=== PATIENT | female | born 1955 | race Caucasian/White ===

== ENCOUNTER → 2018-02-26 09:47 | Outpatient (CLI) | payer BC, SELFPAY ==
--- NOTE | 2018-02-26 09:52 | MM_ITS ---
MM Dig screening mamm BI w/CAD CAD Screening ORDERING PHYSICIAN : Cain Lucero MD PATIENT AGE: 62 years GENDER: Femal INDICATION: 62-year-old female. No hormones. No new complaints. Family history. Mother with breast cancer age 45. Pre-Menopausal TECHNIQUE: Standard CC and MLO images were obtained. R2 CAD reviewed. COMPARISON: Previous mammograms: April 2013 and February 2016 and January 2011 FINDINGS: Moderately dense breast with with minimal asymmetry but no significant new findings. No dominant mass nor suspicious calcifications. RIGHT BREAST:There are a few small punctate calcifications at the central breast. These are slightly more evident apparent than on 2016.. Perhaps very very slight more numerous the punctate character favor more likely benign, however would suggest magnification spot view this area Labeled A at patient's convenience to better characterize and establish baseline for this small area of calcification. A very Reasonable alternative would be 6 month follow-up if preferred by patient . LEFT BREAST:No new areas of concern the left. Follow-up left mammogram in one year =======IMPRESSION: ======== Right breast. Small loose grouping of small punctate calcifications central right breast. Most likely benign but recommend magnification to better characterize is a become more evident. These will be useful to further characterize and to enter establish a baseline reference Left breast Stable with no new areas of concern. One year follow-up left adequate BI-RADS Category: 0 Need Additional Imaging Evaluaiton. RECOMMENDED FOLLOW-UP: IMM - IMMEDIATE FOLLOW-UP RECOMMENDED Magnification views of the developing tiny likely benign calculations right breast (A letter has been sent to the patient regarding results of the study.) .
== END ==
PROVIDERS: Family Provider Family Medicine; PCP Family Medicine; Visit Provider Family Medicine
DX: Z12.31 Encounter for screening mammogram for malignant neoplasm of breast (principal)
CPT/HCPCS: 77067

== ENCOUNTER → 2018-03-19 12:39 | Outpatient (CLI) | payer BC, SELFPAY ==
--- NOTE | 2018-03-19 12:42 | MM_ITS ---
MM Dig mamm DX unilat RT CAD COMPARISON: 02/26/2018, 02/26/2016, 04/19/2013 INDICATION: Follow-up abnormal mammogram/calcifications ORDERING PHYSICIAN: Cain Lucero MD PATIENT AGE: 62 years TECHNIQUE: Spot mag views of the right breast FINDINGS: There is a small cluster of 4 well circumscribed punctate calcifications in the central aspect of the right breast in the retroareolar region. These are probably benign. They've slightly increased in number since 02/26/2016 therefore, recommend 6 month follow-up IMPRESSION: Probably benign calcifications right retroareolar region BI-RADS Category: 3 Benign Finding Short Term Follow-up RECOMMENDED FOLLOW-UP: 6M - 6 MONTH FOLLOW-UP (A letter has been sent to the patient regarding results of the study.)
== END ==
PROVIDERS: Family Provider Family Medicine; PCP Family Medicine; Visit Provider Family Medicine
DX: R92.8 Other abnormal and inconclusive findings on diagnostic imaging of breast (principal)
CPT/HCPCS: 77065

== ENCOUNTER → 2018-09-23 12:43 | Outpatient (CLI) | payer BC, SELFPAY ==
--- NOTE | 2018-09-23 12:48 | MM_ITS ---
MM Dig mamm DX unilat RT CAD INDICATION: Follow-up abnormal mammogram, calcifications ORDERING PHYSICIAN: Cain Lucero MD PATIENT AGE: 62 years COMPARISON: 03/19/2018 TECHNIQUE: Standard images performed along with spot compression mag views FINDINGS: A cluster of 4 calcifications once again noted in the central aspect of the right breast in the retroareolar region which is not significantly changed and maintains a benign appearance. No new abnormalities apparent. IMPRESSION: Benign-appearing calcifications unchanged right retroareolar region. Recommend continued 6 month follow-up to confirm one-year stability. Screening exam on the left suggested at that time as well BI-RADS Category: 3 Probably Benign Finding Short Term Follow-up RECOMMENDED FOLLOW-UP: 6M - 6 MONTH FOLLOW-UP (A letter has been sent to the patient regarding results of the study.)
== END ==
PROVIDERS: PCP Family Medicine; Visit Provider Family Medicine
DX: R92.8 Other abnormal and inconclusive findings on diagnostic imaging of breast (principal)
CPT/HCPCS: 77065

== ENCOUNTER → 2019-03-24 12:44 | Outpatient (CLI) | payer MEDICARE, SELFPAY ==
--- NOTE | 2019-03-24 12:49 | MM_ITS ---
MM Dig mamm BI DX w/CAD INDICATION: Follow-up abnormal mammogram/calcifications ORDERING PHYSICIAN: Cain Lucero MD PATIENT AGE: 63 years COMPARISON: 02/26/2018, 03/19/2018, 02/26/2016 09/23/2018 TECHNIQUE: Standard images performed along with spot compression mag views FINDINGS: There is average fibroglandular tissue. A cluster of benign-appearing calcifications once again noted in the central aspect of the right breast these do not appear significantly changed. No malignant appearing mass. The left breast has an unremarkable appearance. IMPRESSION: Benign findings, no change with no evidence of malignancy. Stable cluster of calcifications in the subareolar region on the right BI-RADS Category: 2 Benign Finding(s) RECOMMENDED FOLLOW-UP: 1YR - 1 YEAR FOLLOW-UP (A letter has been sent to the patient regarding results of the study.)
== END ==
PROVIDERS: PCP Family Medicine; Visit Provider Family Medicine
DX: R92.8 Other abnormal and inconclusive findings on diagnostic imaging of breast (principal)
CPT/HCPCS: 77066

== ENCOUNTER → 2020-04-12 08:42 | Outpatient (CLI) | payer MEDICARE, SELFPAY ==
--- NOTE | 2020-04-12 08:47 | MM_ITS ---
PROCEDURE: MM DIG SCREENING MAMM BI W/CAD Digital Breast Tomosynthesis Included CLINICAL INDICATION: SCREENING There is a history of breast cancer patient's mother diagnosed after menopause. COMPARISON: DXRT MM Dig mamm DX unilat RT CAD from 03/19/2018 DXRT MM Dig mamm DX unilat RT CAD from 09/23/2018 DIG MAMM-DX KA[facility] from 03/24/2019 TECHNIQUE: Standard CC and MLO images and 3D Tomosynthesis was obtained. R2 CAD reviewed. FINDINGS: Moderate scattered fibroglandular densities are seen in the central portions of both breasts. The findings of bilateral and symmetrical. There is no suspicious lesion in either breast and no suspicious microcalcifications. There are small nodes in both axilla. IMPRESSION: Fibrofatty parenchyma with no suspicious lesions seen BI-RAD Category: 1 Negative FOLLOW-UP: 1YR 1 Year Follow-up (A letter has been sent to the patient regarding results of the study.) Dictated by: Dr. Tejinder Treadwell MD 04/13/2020 15:[address] Tejinder Treadwell MD in [place] 04/13/2020 15:07
== END ==
PROVIDERS: PCP Family Medicine; Visit Provider Nurse Practitioner
DX: Z12.31 Encounter for screening mammogram for malignant neoplasm of breast (principal)
CPT/HCPCS: 77063; 77067

== ENCOUNTER → 2021-05-03 10:11 | Outpatient (CLI) | payer MEDICARE, SELFPAY ==
--- NOTE | 2021-05-03 10:15 | MM_ITS ---
PROCEDURE: MM DIG SCREENING MAMM BI W/CAD Digital Breast Tomosynthesis Included CLINICAL INDICATION: SCREENING COMPARISON: MG DMSB DIG MAMM-SCREEN [facility] from 02/26/2016 MG SCBI MM Dig screening mamm BI w/CAD from 02/26/2018 MG DXRT MM Dig mamm DX unilat RT CAD from 03/19/2018 MG DXRT MM Dig mamm DX unilat RT CAD from 09/23/2018 MG DIG MAMM-DX [facility] from 03/24/2019 MG MM DIG SCREENING MAMM BI W/CAD from 04/12/2020 TECHNIQUE: Standard CC and MLO images and 3D Tomosynthesis was obtained. R2 CAD reviewed. FINDINGS: There are scattered fibroglandular elements which may obscure a lesion on mammography. Current mammograms show a small focal asymmetry in the upper slightly lateral aspect of right breast, for which right breast digital diagnostic mammograms and right breast ultrasound are recommended. No other dominant mass. No suspicious type microcalcifications or indirect evidence of malignancy. IMPRESSION: Current mammograms show a small focal asymmetry in the upper slightly outer right breast for which right breast digital diagnostic mammograms and right breast ultrasound are recommended. BI-RAD Category: 0 Need Additional Imaging Evaluation FOLLOW-UP: IMM Immediate Follow-up Recommended (A letter has been sent to the patient regarding results of the study.) Dictated by: Noah Carbajal MD 05/03/2021 17:42 Noah Carbajal MD in [place] 05/03/2021 17:42
== END ==
PROVIDERS: PCP Family Medicine; Visit Provider Nurse Practitioner
DX: Z12.31 Encounter for screening mammogram for malignant neoplasm of breast (principal)
CPT/HCPCS: 77063; 77067

== ENCOUNTER → 2021-05-15 14:29 | Outpatient (CLI) | payer MEDICARE, SELFPAY ==
--- NOTE | 2021-05-15 14:33 | US_ITS ---
PROCEDURE: MM DIG MAMM DX UNILAT RT CAD Digital Breast Tomosynthesis Included RIGHT BREAST ULTRASOUND COMPLETE WITH AXILLA CLINICAL INDICATION: ABN MAMM COMPARISON: MG DIG MAMM-DX [facility] from 03/24/2019 MG MM DIG SCREENING MAMM BI W/CAD from 04/12/2020 MG MM DIG SCREENING MAMM BI W/CAD from 05/03/2021 US US BREAST RT COMPLETE from 05/15/2021 TECHNIQUE: Problem solving views performed along with right breast ultrasound FINDINGS: The area of interest on the MLO view does appear to compress out as fibroglandular tissue. On the CC view there is a 4 mm nodular opacity in the central aspect of the right breast. The anterior margins are obscured. The posterior margins are well-circumscribed. There is average fibroglandular tissue. Ultrasound the right breast shows a 4 mm hypoechoic oval area at the 11 o'clock region which is nonspecific and could be due to small complicated cyst. This could correspond to the mammographic abnormality. No other abnormalities apparent. IMPRESSION: Probably benign findings. Recommend six-month mammographic and sonographic follow-up. BI-RAD Category: 3 Probably Benign Finding Short Term Follow-Up FOLLOW-UP: 6M 6 Month Follow-up (A letter has been sent to the patient regarding results of the study.) Dictated by: Curtis Yanes MD 05/22/2021 17:49 Curtis Yanes MD in [place] 05/22/2021 17:49
== END ==
PROVIDERS: PCP Family Medicine; Visit Provider Nurse Practitioner
DX: R92.8 Other abnormal and inconclusive findings on diagnostic imaging of breast (principal)
CPT/HCPCS: 76641; 77061; 77065; G0279

== ENCOUNTER → 2021-11-19 13:21 | Outpatient (CLI) | payer MEDICARE, SELFPAY ==
--- NOTE | 2021-11-19 13:23 | MM_ITS ---
PROCEDURE INFORMATION: Exam: US Right Breast, Complete MG Right Diagnostic Breast Tomosynthesis Exam date and time: 11/19/2021 1:23 PM Age: 65 years old Clinical indication: Short-term radiographic follow-up for a probably benign right breast mass TECHNIQUE: Imaging protocol: Complete ultrasound of all four quadrants of the Right breast and the retroareolar regions, including ultrasound of the axilla when performed. Right Diagnostic tomosynthesis and 2D mammography including computer-aided detection (CAD) when performed. Unilateral or bilateral exam. COMPARISON: 1. MG MM DIG MAMM DX UNILAT RT CAD 05/15/2021 2:40 PM 2. MG MM DIG SCREENING MAMM BI W/CAD 05/03/2021 10:32 AM FINDINGS: MAMMOGRAPHY: The breast tissue is composed of scattered areas of fibroglandular density. There is no stellate mass, architectural distortion or suspicious microcalcifications to suggest malignancy. Additional spot compression views of the right central to upper breast demonstrate normal overlapping fibroglandular structures. No skin thickening or axillary adenopathy. ULTRASOUND: Sonographic images of the right breast including the retroareolar region, all 4 quadrants and the axilla do not demonstrate any solid or cystic masses. Cursors were placed over normal fibroglandular structures in the right 11 o'clock axis. Previously noted probable cyst in the right 11 o'clock periareolar region is no longer identified. No architectural distortion or acoustical shadowing. No skin thickening or axillary adenopathy. IMPRESSION: No mammographic or sonographic evidence of malignancy. Annual bilateral mammographic screening is recommended in April 2022 unless otherwise clinically indicated. ASSESSMENT: BI-RADS Category 2: Benign
== END ==
PROVIDERS: PCP Family Medicine; Visit Provider Nurse Practitioner
DX: R92.8 Other abnormal and inconclusive findings on diagnostic imaging of breast (principal)
CPT/HCPCS: 76641; 77061; 77065; G0279

== ENCOUNTER → 2022-05-21 08:22 | Outpatient (CLI) | payer MEDICARE, SELFPAY ==
--- NOTE | 2022-05-21 08:36 | XR_ITS ---
FINAL REPORT TECHNIQUE: Bone densitometry calculations of the lumbar spine and left hip were obtained. CLINICAL HISTORY: post menopausal FINDINGS: Using L1-4, the bone mineral density of the spine is 1.078 g/cm2, corresponding to T-score of 0.3. Using the right hip, the bone mineral density of the femoral neck is 0.770 g/cm2, corresponding to a T-score of -0.7. Using the left hip, the bone mineral density of the femoral neck is 0.873 g/cm2, corresponding to a T-score of -0.6. NOTE: T-score: Standard deviation compared with peak bone mass of young adult mean. *Following the recommendations of the International Society of Bone densitometry, classification of hip BMD is based on the lower of two T-scores; total hip or femoral neck. FRAX data was not reported because all scores are above-1.0. IMPRESSION: Normal bone mineral density of the lumbar spine and hip. Reviewed, Interpreted and Dictated by Rico Jovel III, MD Transcribed by Marika Hayes Authenticated and [facility]
--- NOTE | 2022-05-21 08:36 | MM_ITS ---
PROCEDURE INFORMATION: Exam: MG Bilateral Screening 3D Mammography Exam date and time: 05/21/2022 8:48 AM Age: 66 years old Clinical indication: Screening mammogram. TECHNIQUE: Imaging protocol: Bilateral Screening tomosynthesis and 2D mammography including computer-aided detection (CAD) when performed. COMPARISON: 1. MG MM DIG MAMM DX UNILAT RT CAD 11/19/2021 1:22 PM 2. MG MM DIG MAMM DX UNILAT RT CAD 05/15/2021 2:40 PM 3. MG MM DIG SCREENING MAMM BI W/CAD 05/03/2021 10:32 AM 4. MG MM DIG SCREENING MAMM BI W/CAD 04/12/2020 8:58 AM FINDINGS: MAMMOGRAPHY: Breast composition: There are scattered areas of fibroglandular density. Mass: None. Architectural distortion: No new or suspicious architectural distortion. Calcifications: No new or suspicious calcifications are present Asymmetric density: No new or suspicious asymmetric density is present Skin thickening: None. Axillary adenopathy: None. IMPRESSION: No mammographic evidence of malignancy. Recommend annual screening mammography unless otherwise clinically indicated. ASSESSMENT: BI-RADS category 1: Negative
== END ==
PROVIDERS: PCP Family Medicine; Visit Provider Nurse Practitioner
DX: Z12.31 Encounter for screening mammogram for malignant neoplasm of breast (principal); Z78.0 Asymptomatic menopausal state
CPT/HCPCS: 77063; 77067; 77080

== ENCOUNTER → 2022-12-05 12:17 | Outpatient (CLI) | payer MEDICARE, SELFPAY ==
[2022-12-05 18:42] LABS: Basophils % 0.9 % (0.1-2.0); Eosinophils # 0.1 K/mm3 (0.0-0.4); Eosinophils % 2.8 % (0.1-12.0); Hematocrit 39.2 % (37.0-47.0); Hemoglobin 13.2 g/dL (12.2-16.2); Lymphocytes # 1.2 K/mm3 (0.7-4.5); Lymphocytes % 28.8 % (10-50); Mean Corpuscular HGB Conc 33.6 g/dL (31.8-35.4); Mean Corpuscular Hemoglobin 29.6 pg (27.0-31.2); Mean Corpuscular Volume 88.1 fl (81-99); Mean Platelet Volume 9.1 fl (7.4-10.4); Monocytes # 0.3 K/mm3 (0.1-1.0); Monocytes % 6.6 % (1.7-9.3); Neutrophils # 2.5 K/mm3 (1.8-7.8); Neutrophils % 60.9 % (37.0-80.0); Platelet Count 278 K/mm3 (142-424); Red Blood Count 4.45 M/mm3 (4.20-5.40); Red Cell Distribution Width 13.7 % (11.5-17.5)
[2022-12-05 18:51] LABS: Alanine Aminotransferase 22 U/L (12-78); Albumin Level 4.4 g/dl (3.5-5.0); Albumin/Globulin Ratio 1.7 (1.1-1.8); Alkaline Phosphatase 74 U/L (38-126); Anion Gap 8.8 mEq/L (5-15); Aspartate Amino Transferase 27 U/L (14-36); Bilirubin,Total 0.9 mg/dl (0.2-1.3); Blood Urea Nitrogen 18 mg/dl (7-17); Calcium 8.8 mg/dl (8.4-10.2); Carbon Dioxide 29 mmol/L (22.0-30.0); Chloride 105 mmol/L (98-107); Chol/HDL Ratio 4.1 (1-3.5); Cholesterol 199 mg/dl (140-200); Estimated Glomerular Filt Rate 83 ml/min (>60); GFR (African American) 101 ML/MIN (>60); Globulin 2.6 g/dL (1.3-3.2); Glucose 96 mg/dl (74-100); HDL Cholesterol 49 mg/dl (40-60); Potassium 3.8 mmoL/L (3.5-5.1); Sodium 139 mmol/L (136-145); Triglycerides 146 mg/dl (30-150); VLDL Cholesterol 29 mg/dL (0-40)
[2022-12-05 18:54] LABS: Microalbumin/Creatinine Ratio 17.1
[2022-12-05 18:55] LABS: Creatinine,Urine Random 57 mg/dL (Not Estab.)
[2022-12-05 19:01] LABS: Direct LDL Cholesterol 121.34 mg/dL (100-129)
[2022-12-05 19:20] LABS: Thyroid Stimulating Hormone 1.17 uIU/mL (0.465-4.68)
[2022-12-05 20:49] LABS: 25-OH Vitamin D, Total 55.8 ng/mL (30-100)
== END ==
PROVIDERS: PCP Nurse Practitioner; Visit Provider Nurse Practitioner
DX: E03.9 Hypothyroidism, unspecified (principal); E53.8 Deficiency of other specified B group vitamins; E78.5 Hyperlipidemia, unspecified; I10 Essential (primary) hypertension; J30.9 Allergic rhinitis, unspecified; E55.9 Vitamin D deficiency, unspecified
CPT/HCPCS: 80053; 80061; 82043; 82306; 82570; 84439; 84443; 85025

== ENCOUNTER → 2023-05-15 09:23 | Outpatient (CLI) | payer MEDICARE, SELFPAY ==
[2023-05-15 18:49] LABS: Alanine Aminotransferase 21 U/L (12-78); Albumin Level 4.6 g/dl (3.5-5.0); Albumin/Globulin Ratio 1.8 (1.1-1.8); Alkaline Phosphatase 73 U/L (38-126); Anion Gap 16.1 mEq/L (5-15); Aspartate Amino Transferase 32 U/L (14-36); Bilirubin,Total 1.2 mg/dl (0.2-1.3); Blood Urea Nitrogen 19 mg/dl (7-17); Carbon Dioxide 29 mmol/L (22.0-30.0); Chloride 101 mmol/L (98-107); Chol/HDL Ratio 3.1 (1-3.5); Cholesterol 164 mg/dl (140-200); Estimated Glomerular Filt Rate 71 ml/min (>60); Free T4 (Free Thyroxine) 1.37 ng/dl (0.78-2.19); GFR (African American) 86 ML/MIN (>60); Globulin 2.6 g/dL (1.3-3.2); Glucose 89 mg/dl (74-100); HDL Cholesterol 53 mg/dl (40-60); Potassium 4.1 mmoL/L (3.5-5.1); Sodium 142 mmol/L (136-145); Total Protein,Serum 7.2 g/dl (6.3-8.2); Triglycerides 120 mg/dl (30-150); VLDL Cholesterol 24 mg/dL (0-40)
[2023-05-15 18:59] LABS: Direct LDL Cholesterol 89.13 mg/dL (100-129)
[2023-05-15 19:19] LABS: Thyroid Stimulating Hormone 0.99 uIU/mL (0.465-4.68)
== END ==
PROVIDERS: PCP Nurse Practitioner; Visit Provider Nurse Practitioner
DX: E03.9 Hypothyroidism, unspecified (principal); E78.5 Hyperlipidemia, unspecified; I10 Essential (primary) hypertension
CPT/HCPCS: 80053; 80061; 84439; 84443

== ENCOUNTER → 2023-05-22 12:43 | Outpatient (CLI) | payer MEDICARE, SELFPAY ==
--- NOTE | 2023-05-22 12:43 | MM_ITS ---
PROCEDURE INFORMATION: Exam: MG Bilateral Screening 3D Mammography Exam date and time: 05/22/2023 12:56 PM Age: 67 years old Clinical indication: Screening mammogram TECHNIQUE: Imaging protocol: Bilateral Screening tomosynthesis and 2D mammography including computer-aided detection (CAD) when performed. COMPARISON: 1. MG MM DIG SCREENING MAMM BI W/CAD 05/21/2022 8:48 AM 2. MG MM DIG MAMM DX UNILAT RT CAD 11/19/2021 1:22 PM 3. MG MM DIG MAMM DX UNILAT RT CAD 05/15/2021 2:40 PM 4. MG MM DIG SCREENING MAMM BI W/CAD 05/03/2021 10:32 AM FINDINGS: MAMMOGRAPHY: Breast composition: There are scattered areas of fibroglandular density. Mass: None. Architectural distortion: No new or suspicious architectural distortion. Calcifications: No new or suspicious calcifications are present Asymmetric density: No new or suspicious asymmetric density is present Skin thickening: None. Axillary adenopathy: None. IMPRESSION: No mammographic evidence of malignancy. Recommend annual screening mammography unless otherwise clinically indicated. ASSESSMENT: BI-RADS category 1: Negative
== END ==
PROVIDERS: PCP Nurse Practitioner; Visit Provider Nurse Practitioner
DX: Z12.31 Encounter for screening mammogram for malignant neoplasm of breast (principal)
CPT/HCPCS: 77063; 77067

== ENCOUNTER 2023-12-15 20:57 | Outpatient (CLI) | payer MEDICARE, SELFPAY ==
[2023-12-15 19:27] LABS: Basophils % 0.9 % (0.1-2.0); Eosinophils # 0.2 K/mm3 (0.0-0.4); Eosinophils % 4.4 % (0.1-12.0); Hemoglobin 13.9 g/dL (12.2-16.2); Lymphocytes # 1.4 K/mm3 (0.7-4.5); Lymphocytes % 29.3 % (10-50); Mean Corpuscular HGB Conc 33.9 g/dL (31.8-35.4); Mean Corpuscular Hemoglobin 30.1 pg (27.0-31.2); Mean Corpuscular Volume 88.8 fl (81-99); Mean Platelet Volume 9.4 fl (7.4-10.4); Monocytes # 0.3 K/mm3 (0.1-1.0); Monocytes % 7.3 % (1.7-9.3); Neutrophils # 2.7 K/mm3 (1.8-7.8); Neutrophils % 58.1 % (37.0-80.0); Platelet Count 237 K/mm3 (142-424); Red Blood Count 4.62 M/mm3 (4.20-5.40); Red Cell Distribution Width 13.6 % (11.5-17.5); White Blood Count 4.6 K/mm3 (4.8-10.8)
[2023-12-15 20:10] LABS: Alanine Aminotransferase 21 U/L (12-78); Albumin Level 4.3 g/dl (3.5-5.0); Albumin/Globulin Ratio 1.7 (1.1-1.8); Alkaline Phosphatase 72 U/L (38-126); Anion Gap 13.4 mEq/L (5-15); Aspartate Amino Transferase 26 U/L (14-36); Bilirubin,Total 0.8 mg/dl (0.2-1.3); Blood Urea Nitrogen 15 mg/dl (7-17); Calcium 9.4 mg/dl (8.4-10.2); Carbon Dioxide 29 mmol/L (22.0-30.0); Chloride 102 mmol/L (98-107); Chol/HDL Ratio 4.4 (1-3.5); Cholesterol 199 mg/dl (140-200); Estimated Glomerular Filt Rate 62 ml/min (>60); GFR (African American) 75 ML/MIN (>60); Globulin 2.6 g/dL (1.3-3.2); Glucose 96 mg/dl (74-100); HDL Cholesterol 45 mg/dl (40-60); Potassium 4.4 mmoL/L (3.5-5.1); Sodium 140 mmol/L (136-145); Total Protein,Serum 6.9 g/dl (6.3-8.2); Triglycerides 170 mg/dl (30-150); VLDL Cholesterol 34 mg/dL (0-40)
[2023-12-15 20:22] LABS: Direct LDL Cholesterol 109.61 mg/dL (100-129)
[2023-12-15 20:29] LABS: Free T4 (Free Thyroxine) 1.31 ng/dl (0.78-2.19)
[2023-12-15 20:41] LABS: Thyroid Stimulating Hormone 1.05 uIU/mL (0.465-4.68)
[2023-12-15 21:00] LABS: Vitamin B12 698 pg/mL (239-931)
[2023-12-15 22:53] LABS: Creatinine,Urine Random 37 mg/dL (Not Estab.); Microalbumin < 6.000 mg/L (0-16.7)
== END 2023-12-15 23:59 ==
LOC: LAB.DROPOF 20:58
PROVIDERS: PCP Nurse Practitioner; Visit Provider Nurse Practitioner
DX: E03.9 Hypothyroidism, unspecified (principal); E53.8 Deficiency of other specified B group vitamins; E78.5 Hyperlipidemia, unspecified; I10 Essential (primary) hypertension
CPT/HCPCS: 80053; 80061; 82043; 82570; 82607; 84439; 84443; 85025

== ENCOUNTER 2024-05-24 10:30 | Outpatient (CLI) | payer MEDICARE, SELFPAY ==
[2024-05-24 19:08] LABS: Free T4 (Free Thyroxine) 1.32 ng/dl (0.78-2.19)
[2024-05-24 19:26] LABS: Alanine Aminotransferase 20 U/L (12-78); Albumin Level 4.4 g/dl (3.5-5.0); Albumin/Globulin Ratio 1.6 (1.1-1.8); Alkaline Phosphatase 67 U/L (38-126); Anion Gap 9.8 mEq/L (5-15); Aspartate Amino Transferase 27 U/L (14-36); Bilirubin,Total 1.1 mg/dl (0.2-1.3); Blood Urea Nitrogen 17 mg/dl (7-17); Calcium 9.3 mg/dl (8.4-10.2); Carbon Dioxide 29 mmol/L (22.0-30.0); Chloride 105 mmol/L (98-107); Chol/HDL Ratio 3.3 (1-3.5); Cholesterol 184 mg/dl (140-200); Estimated Glomerular Filt Rate 71 ml/min (>60); GFR (African American) 86 ML/MIN (>60); Globulin 2.8 g/dL (1.3-3.2); Glucose 98 mg/dl (74-100); HDL Cholesterol 56 mg/dl (40-60); Potassium 3.8 mmoL/L (3.5-5.1); Sodium 140 mmol/L (136-145); Total Protein,Serum 7.2 g/dl (6.3-8.2); Triglycerides 135 mg/dl (30-150); VLDL Cholesterol 27 mg/dL (0-40)
[2024-05-24 19:37] LABS: Direct LDL Cholesterol 94.55 mg/dL (100-129)
[2024-05-24 19:57] LABS: Thyroid Stimulating Hormone 0.81 uIU/mL (0.465-4.68)
== END 2024-05-24 23:59 | disposition home or self-care (01) ==
LOC: LAB.DROPOF 05-25 10:30
PROVIDERS: PCP Nurse Practitioner; Visit Provider Nurse Practitioner
DX: E03.9 Hypothyroidism, unspecified (principal); I10 Essential (primary) hypertension; E78.5 Hyperlipidemia, unspecified; E53.8 Deficiency of other specified B group vitamins; Z12.39 Encounter for other screening for malignant neoplasm of breast; Z98.890 Other specified postprocedural states
CPT/HCPCS: 80053; 80061; 84439; 84443

== ENCOUNTER 2024-06-02 15:43 | Outpatient (CLI) | payer MEDICARE, SELFPAY ==
--- NOTE | 2024-06-02 15:43 | MM_ITS ---
PROCEDURE INFORMATION: Exam: MG Bilateral Screening 3D Mammography Exam date and time: 06/02/2024 3:29 PM Age: 68 years old Clinical indication: Screening examination TECHNIQUE: Imaging protocol: Bilateral Screening tomosynthesis and 2D mammography including computer-aided detection (CAD) when performed. COMPARISON: 1. MG MM DIG SCREENING MAMM BI W/CAD 05/22/2023 12:56 PM 2. MG MM DIG SCREENING MAMM BI W/CAD 05/21/2022 8:48 AM FINDINGS: MAMMOGRAPHY: Breast composition: There are scattered areas of fibroglandular density. Mass: None. Architectural distortion: None. Calcifications: No suspicious calcifications. Asymmetric density: None. Skin thickening: None. Axillary adenopathy: None. IMPRESSION: No mammographic evidence of malignancy. Annual screening is recommended unless otherwise clinically indicated. ASSESSMENT: BI-RADS Category 1: Negative
== END 2024-06-02 23:59 | disposition home or self-care (01) ==
LOC: RAD 15:43
PROVIDERS: PCP Nurse Practitioner; Visit Provider Nurse Practitioner
DX: Z12.31 Encounter for screening mammogram for malignant neoplasm of breast (principal)
CPT/HCPCS: 77063; 77067

== ENCOUNTER 2024-08-24 07:31 | Day surgery (SDC) | payer MEDICARE, SELFPAY ==
[2024-08-23 12:58] VITALS: BMI 25.0
[2024-08-24 07:50] VITALS: BP 163/89; PULSE 69; RESP 18; TEMP 36.6; O2SAT 98; BMI 25.0
[2024-08-24] MEDS: LACTATED RINGERS 1000ML 1,000 ML 25 ML IV (07:59)
--- NOTE | 2024-08-24 08:24 | P.PCN_ITS ---
Procedure: Date: 08/24/24 Patient Date of :: 1955 Procedure Performed:: Colonoscopy Indications:: History of colon polyps Colonoscopy and 2015 revealed a cecal polyp, polyp at 35 cm, and a polyp at 20 c m. Follow-up colonoscopy September 2019 was complicated by fairly severe tortuosity and spasticity. Scattered diverticulosis and mild hemorrhoids noted. Performing Provider:: Ta Hernandez MD Referring Provider:: . Sedation:: Monitored anesthesia care Procedure:: After informed consent was obtained the patient was taken to the endoscopy suite. Sedation ensued after the patient was transferred to the left lateral decubitus position. Pulse, blood pressure, and oxygen saturation were monitored throughout the procedure. Digital rectal exam revealed no significant abnormality. The colonoscope was placed in position. The entire colon was evaluated. The colonoscope was carefully removed and the patient was transferred to recovery in stable condition. Please see findings and specimens below for detail. Findings:: Bowel preparation moderate Large volume foam/bubbles throughout colon (limited evacuation with simethicone irrigant) Unchanged diverticulosis Specimens:: None Recommendations:: Repeat colonoscopy approximately 3 years secondary to visualization difficulties (moderate preparation/bubbles) and history of complex polyps. Complications:: No immediate Estimated blood obtained (mL): 0 Colonoscopy Component Colonoscopy Component Was a colonoscopy performed during today's procedure?: Yes Recommended follow up colonoscopy of at least 10 years?: No If no, follow up colonoscopy recommended in ___ years?: (See above) Reason for not recommending >/= 10 yr follow-up interval?: (See above)
[2024-08-24 08:35] VITALS: O2SAT 99
--- NOTE | 2024-08-24 08:35 | P.PNANES_ITS ---
[facility] Disclaimer: The information contained in this section may have been updated after the patient was seen, as this information can be updated by other users. Medical History History of bone density study (~2021) History of mammogram (~2022) Colon polyps Diverticulosis Glaucoma Vitamin D deficiency Allergic rhinitis Vitamin B12 deficiency Acquired hypothyroidism Hyperlipidemia Essential hypertension Surgical History H/O ovarian cystectomy History of colonoscopy (~09/2019) Family History Other Breast cancer Social History Smoking Status: Never smoker second hand exposure: No alcohol intake: never substance use type: denies use current occupational status: unemployed and retired Travel in the last 8 weeks: None current occupational exposures/hazards: No caffeine: Yes [facility] Anesthesia Checklist Patient Identification Patient Identification: Arm Band Structural Data Admitted From: Home Planned Operative Procedure/s: Colonoscopy Consent for Planned Operative Procedure(s) Verified: Yes Verified Documents: Surgical Consent and History and Physical NPO Status Verified Time NPO: 00:00 Additional verifications Anesthesia Reactions: No Airway Assessment Mallampati Score:: Class II C-Spine Mobility Assessed: Yes TMJ Mobility Assessed: Yes Dentition: Poor Dentition Neurological Assessment Level of Consciousness: Awake, Alert and Appropriate Anesthesia Plan Anesthesia Risk discussed: Yes Anesthesia Plan: Verified ASA Class: II Anesthesia Type: MAC
[2024-08-24 09:11] VITALS: BP 77/40; PULSE 70; RESP 9; TEMP 36.7; O2SAT 95
[2024-08-24 09:21] VITALS: BP 84/49; PULSE 78; RESP 12; O2SAT 98
[2024-08-24 09:31] VITALS: BP 114/67; PULSE 73; RESP 12; O2SAT 96
[2024-08-24 09:41] VITALS: BP 115/67; PULSE 91; RESP 13; O2SAT 98
== END 2024-08-24 10:03 | disposition home or self-care (01) ==
PROVIDERS: PCP Nurse Practitioner; Visit Provider Surgery
PROC: 0DJD8ZZ Inspection of Lower Intestinal Tract, Via Natural or Artificial Opening Endoscopic (ICD-10-PCS; CPT 45378; principal; 2024-08-24 08:30)
DX: Z86.0100 Personal history of colon polyps, unspecified (principal); K57.30 Diverticulosis of large intestine without perforation or abscess without bleeding
CPT/HCPCS: 45378; J7120

== ENCOUNTER 2024-12-13 09:16 | Outpatient (CLI) | payer MEDICARE, SELFPAY ==
[2024-12-13 19:32] LABS: Albumin Level 4.4 g/dl (3.5-5.0); Chloride 101 mmol/L (98-107); Potassium 4.9 mmoL/L (3.5-5.1); Sodium 140 mmol/L (136-145)
[2024-12-13 19:34] LABS: Alanine Aminotransferase 23 U/L (12-78); Aspartate Amino Transferase 30 U/L (14-36); Blood Urea Nitrogen 21 mg/dl (7-17); Estimated Glomerular Filt Rate 71 ml/min (>60); GFR (African American) 86 ML/MIN (>60)
[2024-12-13 19:35] LABS: Albumin/Globulin Ratio 1.6 (1.1-1.8); Alkaline Phosphatase 73 U/L (38-126); Anion Gap 14.9 mEq/L (5-15); Calcium 9.5 mg/dl (8.4-10.2); Carbon Dioxide 29 mmol/L (22.0-30.0); Chol/HDL Ratio 3.5 (1-3.5); Cholesterol 208 mg/dl (140-200); Globulin 2.7 g/dL (1.3-3.2); Glucose 101 mg/dl (74-100); HDL Cholesterol 60 mg/dl (40-60); Total Protein,Serum 7.1 g/dl (6.3-8.2); Triglycerides 161 mg/dl (30-150); VLDL Cholesterol 32 mg/dL (0-40)
[2024-12-13 19:42] LABS: Microalbumin/Creatinine Ratio 23.1
[2024-12-13 19:50] LABS: Creatinine,Urine Random 244 mg/dL (Not Estab.); Free T4 (Free Thyroxine) 1.47 ng/dl (0.78-2.19)
[2024-12-13 20:05] LABS: Direct LDL Cholesterol 117.17 mg/dL (100-129)
[2024-12-13 20:20] LABS: Thyroid Stimulating Hormone 1.18 uIU/mL (0.465-4.68)
[2024-12-13 22:16] LABS: Vitamin B12 709 pg/mL (239-931)
== END 2024-12-13 23:59 | disposition home or self-care (01) ==
LOC: LAB.DROPOF 12-14 12:00
PROVIDERS: PCP Nurse Practitioner; Visit Provider Nurse Practitioner
DX: E78.5 Hyperlipidemia, unspecified (principal); I10 Essential (primary) hypertension; E03.9 Hypothyroidism, unspecified; E53.8 Deficiency of other specified B group vitamins; Z98.890 Other specified postprocedural states
CPT/HCPCS: 80053; 80061; 82043; 82570; 82607; 84439; 84443

== ENCOUNTER 2025-05-31 08:30 | Outpatient (CLI) | payer MEDICARE, SELFPAY ==
[2025-05-31 15:33] LABS: Alanine Aminotransferase 17 U/L (12-78); Albumin Level 4.6 g/dl (3.5-5.0); Albumin/Globulin Ratio 1.8 (1.1-1.8); Alkaline Phosphatase 72 U/L (38-126); Anion Gap 16.2 mEq/L (5-15); Aspartate Amino Transferase 30 U/L (14-36); Bilirubin,Total 1.3 mg/dl (0.2-1.3); Blood Urea Nitrogen 13 mg/dl (7-17); Calcium 9.6 mg/dl (8.4-10.2); Carbon Dioxide 28 mmol/L (22.0-30.0); Chloride 100 mmol/L (98-107); Cholesterol 171 mg/dl (140-200); Creatinine,Serum 0.70 mg/dl (0.52-1.04); Estimated Glomerular Filt Rate 82 ml/min (>60); GFR (African American) 100 ML/MIN (>60); Globulin 2.6 g/dL (1.3-3.2); Glucose 108 mg/dl (74-100); HDL Cholesterol 54 mg/dl (40-60); Potassium 4.2 mmoL/L (3.5-5.1); Sodium 140 mmol/L (136-145); Total Protein,Serum 7.2 g/dl (6.3-8.2); Triglycerides 152 mg/dl (30-150)
[2025-05-31 15:44] LABS: Free T4 (Free Thyroxine) 1.43 ng/dl (0.78-2.19)
[2025-05-31 16:00] LABS: Thyroid Stimulating Hormone 1.20 uIU/mL (0.465-4.68)
[2025-05-31 16:06] LABS: Hemoglobin A1C 6.7 % (4.0-6.0)
[2025-05-31 16:15] LABS: Hepatitis C Ab Qual. W/ RFX NEGATIVE (Negative)
--- OUTSIDE RECORDS SUMMARY | 2025-06-01 10:28 | XMS_ITS | Clinical Summary ---
Author Organization [facility] Address [address] [place] [phone] Phone Care Team Providers Care Poultry Eviscerator Name Role Phone Unavailable Primary Care Provider Unavailabl e Allergies No known active allergies Medications metoprolol (LOPRESSOR) 50 mg Oral Tablet Take by mouth 2 times daily. Active simvastatin (ZOCOR) 40 mg Oral Tablet Take 40 mg by mouth daily. 3 Active LEVOthyroxine (SYNTHROID) 50 mcg Oral Tablet TAKE 1 TABLET ORALLY ONCE DAILY 3 Active fluticasone propionate (FLONASE) 50 mcg/actuation Nasl Windber, Suspension USE 1 SPRAY INTRANASALLY DAILY FOR ALLERGY SYMPTOMS 3 Active Active Problems No known active problems Surgical History Surgery Date Site/Laterality Comments TUMOR REMOVAL right index finger Medical History Medical History Date Comments High cholesterol Family History Medical History Relation Name Comments High Blood Pressure Brother Cancer Mother Cancer Sister High Blood Pressure Sister Relation Name Status Comments Brother Mother Sister Social History Tobacco Use Types Packs/Day Years Used Date Smoking Tobacco: Never Smokeless Tobacco: Never Tobacco Cessation:Counseling Given: Not Answered Alcohol Use Standard Drinks/Week Comments Yes 0 (1 standard drink = 0.6 oz pur e alcohol) Comments Unknown Sex and Gender Information Value Date Recorded Sex Assigned at Not on file Legal Sex Female 11:33 AM EDT Gender Identity Not on file Sexual Orientation Not on file Obstetrics History Last Filed Vital Signs Vital Sign Reading Time Taken Comments Blood Pressure - - Pulse - - Temperature - - Respiratory Rate - - Oxygen Saturation - - Inhaled Oxygen Concentration - - Weight 70.8 kg (156 lb) 06/02/2023 9:29 AM EDT Height 165.1 cm (5' 5 ) 06/02/2023 9:29 AM EDT Body Mass Index 25.96 06/02/2023 9:29 AM EDT Plan of Treatment Health Maintenance Due Date Last Done Comments Wellness Exam Medicare 1958 Hepatitis C Screening 1971 Breast Cancer Screening 1993 DTaP/TDaP/Td (1 - Tdap) 01/22/1997 01/21/1997 Cologuard 1998 Colon Cancer Screening 1998 Colonoscopy 1998 FIT 1998 Sigmoidoscopy 1998 Virtual Colonography 1998 Pneumococcal Vaccine 50+ (1 of 1 - PCV) 2003 Zoster (1 of 2) 2003 Bone Density Screening 2018 COVID-19 Vaccine (1 - 2023-2 5 season) 2024 Influenza Vaccine (#1) 2025 Hepatitis B Vaccine Aged Out No longe r eligible based on patient's age to complete this topic Meningococcal B Vaccine Aged Out No l onger eligible based on patient's age to complete this topic Insurance [employer] MEDICARE PPO MR
== END 2025-05-31 23:59 | disposition home or self-care (01) ==
LOC: LAB.DROPOF 06-01 10:24
PROVIDERS: PCP Nurse Practitioner; Visit Provider Nurse Practitioner
DX: I10 Essential (primary) hypertension (principal); E78.5 Hyperlipidemia, unspecified; E03.9 Hypothyroidism, unspecified; R73.01 Impaired fasting glucose; Z11.59 Encounter for screening for other viral diseases
CPT/HCPCS: 80053; 80061; 80074; 82043; 82570; 83036; 84439; 84443; 87389